=== PATIENT | male | born 1935 | race Hispanic/Latino ===

== ENCOUNTER 2021-02-20 15:46 | Emergency (ER) | payer MEDICARE, OTHER ==
[2021-02-20] MEDS ORDERED: IPRATROPIUM 0.02% NEBU 2.5 ML IH ONE (16:14)
[2021-02-20] MEDS ORDERED: SODIUM CHLORIDE 0.9% 1000 ML 1,000 ML IV ONE (16:14)
[2021-02-20] MEDS ORDERED: methylPREDNISolone Sod Succinate 125 MG/2 ML INJ IV ONE (16:14)
[2021-02-20] MEDS ORDERED: MAGNESIUM SULFATE 2 GM/50 ML BAG IV SCH (16:14)
[2021-02-20] MEDS ORDERED: ALBUTEROL 2.5 MG/3 ML NEBU IH ONE (16:14)
--- NOTE | 2021-02-20 16:32 | Emergency Department Report ---
ED General Adult HPI - General Chief complaint: Adult Asthma Stated complaint: COPD/NABEEL Time Seen by Provider: 02/20/21 16:06 Source: EMS Mode of arrival: Ambulatory Limitations: No Limitations - History of Present Illness Initial comments: The patient presents to emergency department the chief complaint of shortness of breath that started yesterday. Patient states he has a history of COPD and is on 6 L of nasal cannula at home. EMS states upon arrival his O2 sats were 85% on 6 L but with 100 foot quarter. Patient complains of having a thick prod uctive cough over the last couple of days as well. Patient denies fever. Patient has chest pain, abdominal pain, headache. -: days(s) (1) Severity scale (0 -10): 0 Consistency: constant Improves with: none Worsens with: none Associated Symptoms: denies other symptoms Treatments Prior to Arrival: none - Related Data Previous Rx's Medication Instructions Recorded Last Taken Type Albuterol Sulfate [Albuterol 0.63% 0.63 mg IH Q4HR PRN #30 ml 02/20/21 Unknown Rx NEBS] Doxycycline Monohydrate 100 mg PO BID #14 capsule 02/20/21 Unknown Rx [Doxycycline Monohydrate CAP] predniSONE [Deltasone] 20 mg PO DAILY #15 tablet 02/20/21 Unknown Rx Allergies Allergy/AdvReac Type Severity Reaction Status Date / Time shellfish derived AdvReac Diarrhea Verified 02/20/21 17:09 ED Review of Systems ROS: Stated complaint: COPD/NABEEL Other details as noted in HPI Comment: All other systems reviewed and negative Constitutional: denies: chills, fever Eyes: denies: eye pain, eye discharge, vision change ENT: denies: ear pain, throat pain Respiratory: shortness of breath. denies: cough, wheezing Cardiovascular: denies: chest pain, palpitations Endocrine: no symptoms reported Gastrointestinal: denies: abdominal pain, nausea, diarrhea Genitourinary: denies: urgency, dysuria Musculoskeletal: denies: back pain, joint swelling, arthralgia Skin: denies: rash, lesions Neurological: denies: headache, weakness, paresthesias Psychiatric: denies: anxiety, depression Hematological/Lymphatic: denies: easy bleeding, easy bruising ED Past Medical Hx - Past Medical History Previous Medical History?: Yes Hx COPD: Yes - Medications Home Medications: Home Medications Medication Instructions Recorded Confirmed Last Taken Type Albuterol Sulfate [Albuterol 0.63% 0.63 mg IH Q4HR PRN #30 ml 02/20/21 Unknown Rx NEBS] Doxycycline Monohydrate 100 mg PO BID #14 capsule 02/20/21 Unknown Rx [Doxycycline Monohydrate CAP] predniSONE [Deltasone] 20 mg PO DAILY #15 tablet 02/20/21 Unknown Rx ED Physical Exam - General Limitations: No Limitations General appearance: alert, in no apparent distress - Head Head exam: Present: atraumatic, normocephalic - Eye Eye exam: Present: normal appearance, PERRL, EOMI - ENT ENT exam: Present: mucous membranes moist - Neck Neck exam: Present: normal inspection - Respiratory Respiratory exam: Present: wheezes. Absent: respiratory distress - Cardiovascular Cardiovascular Exam: Present: regular rate, normal rhythm. Absent: systolic murmur, diastolic murmur, rubs, gallop - GI/Abdominal GI/Abdominal exam: Present: soft, normal bowel sounds. Absent: distended, tenderness - Rectal Rectal exam: Present: deferred - Extremities Exam Extremities exam: Present: normal inspection - Back Exam Back exam: Present: normal inspection - Neurological Exam Neurological exam: Present: alert, oriented X3, CN II-XII intact. Absent: motor sensory deficit - Psychiatric Psychiatric exam: Present: normal affect, normal mood - Skin Skin exam: Present: warm, dry, intact, normal color. Absent: rash ED Course Vital Signs 02/20/21 02/20/21 02/20/21 15:54 16:16 17:00 Temperature 98.4 F Pulse Rate 96 H 99 H 99 H Pulse Rate [ Anterior Bilateral Throughout] Respiratory 22 15 17 Rate Respiratory Rate [Anterior Bilateral Throughout] Blood Pressure 134/45 136/55 Blood Pressure 112/76 [Right] O2 Sat by Pulse 94 96 99 Oximetry 02/20/21 17:07 Temperature Pulse Rate Pulse Rate [ 102 H Anterior Bilateral Throughout] Respiratory Rate Respiratory 12 Rate [Anterior Bilateral Throughout] Blood Pressure Blood Pressure [Right] O2 Sat by Pulse Oximetry ED Medical Decision Making - Lab Data Result diagrams: 02/20/21 16:23 02/20/21 16:23 Lab Results 02/20/21 02/20/21 02/20/21 Range/Units 16:23 16:23 16:23 WBC 7.2 (4.5-11.0) K/mm3 RBC 4.24 (3.65-5.03) M/mm3 Hgb 13.0 (11.8-15.2) gm/dl Hct 38.4 (35.5-45.6) % MCV 91 (84-94) fl MCH 31 (28-32) pg MCHC 34 (32-34) % RDW 15.2 (13.2-15.2) % Plt Count 187 (140-440) K/mm3 Lymph % (Auto) 10.9 L (13.4-35.0) % [place] % (Auto) 9.3 H (0.0-7.3) % Eos % (Auto) 3.4 (0.0-4.3) % Baso % (Auto) Claim Rep Lymph # (Auto) 0.8 L (1.2-5.4) K/mm3 [place] # (Auto) 0.7 (0.0-0.8) K/mm3 Eos # (Auto) 0.2 (0.0-0.4) K/mm3 Baso # (Auto) 0.0 (0.0-0.1) K/mm3 Seg Neutrophils % 75.9 H (40.0-70.0) % Seg Neutrophils # 5.4 (1.8-7.7) K/mm3 PT 14.6 (12.2-14.9) Sec. INR 1.08 (0.87-1.13) APTT 31.8 (24.2-36.6) Sec. Sodium 142 (137-145) mmol/L Potassium 4.4 (3.6-5.0) mmol/L Chloride 101.1 (98-107) mmol/L Carbon Dioxide 33 H (22-30) mmol/L Anion Gap 12 mmol/L BUN 9 (9-20) mg/dL Creatinine 0.6 L (0.8-1.3) mg/dL Estimated GFR > 60 ml/min BUN/Creatinine Ratio 15 % Glucose 111 H (75-100) mg/dL Calcium 9.5 (8.4-10.2) mg/dL Magnesium 2.70 H (1.7-2.3) mg/dL Total Bilirubin 0.60 (0.1-1.2) mg/dL AST 21 (5-40) units/L ALT 13 (7-56) units/L Alkaline Phosphatase 110 (35-129) units/L Troponin T < 0.010 (0.00-0.029) ng/mL Total Protein 6.5 (6.3-8.2) g/dL Albumin 3.8 L (3.9-5) g/dL Albumin/Globulin Ratio 1.4 % - Medical Decision Making Patient received continuous breathing treatment, IV magnesium, IV Solu-Medrol On reevaluation of the patient at 6:30 PM his O2 sats were 88% on 4 L via nasal cannula. Patient states he has a portable platform at home and his O2 sats on 6.5 L or normally between 88 and 91%. Patient was offered admission but politely declined Patient given IV antibiotics Critical Care Time: Yes Critical care time in (mins) excluding proc time.: 35 Critical care attestation.: If time is entered above; I have spent that time in minutes in the direct care of this critically ill patient, excluding procedure time. ED Disposition Clinical Impression: COPD with exacerbation Disposition: DC-01 TO HOME OR SELFCARE Is pt being admited?: No Does the pt Need Aspirin: No Condition: Stable Instructions: Chronic Obstructive Pulmonary Disease (ED), Chronic Obstructive Pulmonary Disease Additional Instructions: Return if worse Prescriptions: Albuterol Sulfate [Albuterol 0.63% NEBS] 0.63 mg IH Q4HR PRN #30 ml PRN Reason: Wheezing predniSONE [Deltasone] 20 mg PO DAILY #15 tablet Doxycycline Monohydrate [Doxycycline Monohydrate CAP] 100 mg PO BID #14 capsule Referrals: PABLO DELGADO [Other] - 3-5 Days TORIBIO HARRISON MD [Staff Physician] - 3-5 Days Time of Disposition: 19:53
--- NOTE | 2021-02-20 16:43 | XRay Report ---
CHEST 1 VIEW INDICATION / CLINICAL INFORMATION: Dyspnea. COMPARISON: None available. FINDINGS: SUPPORT DEVICES: None. HEART / MEDIASTINUM: No significant abnormality. LUNGS / PLEURA: No significant pulmonary or pleural abnormality. No pneumothorax. ADDITIONAL FINDINGS: No significant additional findings. IMPRESSION: Lucent line in the right hemithorax probably represents a skinfold. No other significant abnormality Signer Name: Wyatt Perkins MD FACCorey Signed: 02/20/2021 4:38 PM Workstation Name: [id number]
[2021-02-20 17:06] LABS: INR 1.08 (0.87-1.13)
[2021-02-20 17:07] LABS: Partial Thromboplastin Time 31.8 Sec. (24.2-36.6)
[2021-02-20 17:21] LABS: Alanine Aminotransferase 13 units/L (7-56); Albumin 3.8 g/dL (3.9-5); Blood Urea Nitrogen 9 mg/dL (9-20); Calcium 9.5 mg/dL (8.4-10.2); Eosinophils # (Auto) 0.2 K/mm3 (0.0-0.4); Eosinophils % (Auto) 3.4 % (0.0-4.3); Hematocrit 38.4 % (35.5-45.6); Hemolysis Index 11; Lymphocytes # (Auto) 0.8 K/mm3 (1.2-5.4); Lymphocytes % (Auto) 10.9 % (13.4-35.0); Mean Corpuscular HGB Conc 34 % (32-34); Mean Corpuscular Volume 91 fl (84-94); Monocytes # (Auto) 0.7 K/mm3 (0.0-0.8); Monocytes % (Auto) 9.3 % (0.0-7.3); Platelet Count 187 K/mm3 (140-440); Red Blood Count 4.24 M/mm3 (3.65-5.03); Red Cell Distribution Width 15.2 % (13.2-15.2)
[2021-02-20 17:30] LABS: BUN/Creatinine Ratio 15
[2021-02-20] MEDS ORDERED: methylPREDNISolone Sod Succinate 125 MG/2 ML INJ IV SCH (18:00)
[2021-02-20] MEDS ORDERED: IPRATROPIUM 0.02% NEBU 2.5 ML IH SCH (18:00)
[2021-02-20] MEDS ORDERED: ALBUTEROL 2.5 MG/3 ML NEBU IH SCH (18:00)
[2021-02-20] MEDS ORDERED: AZITHROMYCIN/NS 500 MG/250 ML 500 MG/250 ML BAG IV ONE (18:58)
[2021-02-20 21:09] VITALS: BP 143/69
== END 2021-02-20 21:09 | disposition home or self-care (01) ==
LOC: ED 15:46
DX: J44.1 Chronic obstructive pulmonary disease with (acute) exacerbation (principal); Z79.899 Other long term (current) drug therapy; Z91.013 Allergy to seafood
CPT/HCPCS: 36415; 71045; 80053; 83735; 84484; 85025; 85610; 85730; 94640; 96361; 96365; 96375; 99284; J0456; J2930; J3475; 94644